=== PATIENT | female | born 1985 | race Caucasian/White ===

== ENCOUNTER 2020-07-14 01:36 | Emergency (ER) | payer OTHER, SELFPAY ==
--- NOTE | ~2020-07-14 | CT_ITS ---
EXAMINATION CT CHEST, ABDOMEN AND PELVIS WITH CONTRAST CLINICAL INFORMATION: Trauma. COMPARISON: None. TECHNIQUE: Multidetector volumetric CT imaging of the chest, abdomen and pelvis was obtained after the administration of 85 mL of intravenous Omnipaque 350 without immediate adverse reactions. Coronal and sagittal reformats were reviewed. This CT examination was performed using dose optimization techniques as appropriate, variously including the following: *Automated exposure control *Adjustment of mA and/or kV according to patient size (this includes techniques or standardized protocols for targeted exams where dose is matched to indication/reason for exam; i.e. extremities or head) *Use of iterative reconstruction technique DLP: 311 mGy-cm. FINDINGS: CHEST LUNGS/PLEURA: Mild anterior subpleural groundglass opacity along the anterior segments of the upper lobes bilaterally suggestive of pulmonary contusions in the setting of trauma. No pneumothorax. Left lower lobe subsegmental atelectasis and trace pleural effusion. MEDIASTINUM/TADEO: Heart normal in size without pericardial effusion. Great vessels normal caliber. No evidence of acute traumatic aortic injury. Central airways patent. CHEST WALL/AXILLA: Unremarkable. ABDOMEN/PELVIS HEPATOBILIARY: Liver normal in size, contour and morphology. Periportal edema present. No suspicious lesions. No intra or extrahepatic biliary dilation. Gallbladder unremarkable. PANCREAS: Unremarkable. SPLEEN: The spleen is shattered with greater than 25% devascularization with lacerations extending through the entirety of the spleen. There is a large amount of blood which is largely subcapsular in location, distending the capsule to 20 cm craniocaudally. ADRENAL GLANDS: Unremarkable. KIDNEYS, URETERS AND BLADDER: Kidneys normal in size, axis and morphology demonstrating symmetric enhancement. No hydronephrosis or urinary calculi. Ureters normal in course and caliber. Bladder grossly unremarkable.. GASTROINTESTINAL TRACT: No bowel related abnormalities. PELVIC VISCERA: Uterus and adnexa unremarkable. LYMPH NODES: Normal. PERITONEUM/BODY WALL: Moderate hemoperitoneum present within the pelvis. VASCULAR STRUCTURES: Normal caliber aorta. Patent venous structures. OSSEOUS STRUCTURES Nondisplaced left lateral eighth rib fracture as seen on sagittal image 2. No additional acute fractures are seen. CT/CT abdomen pelvis w con IMPRESSION: * Shattered spleen (AAST grade 5 splenic injury) with large predominantly subcapsular hematoma and moderate hemoperitoneum, along with greater than 25% devascularization of the spleen. * Nondisplaced left lateral eighth rib fracture. * Minimal subpleural groundglass opacity within the anterior segments of the upper lobes bilaterally likely reflecting pulmonary contusions in the setting of trauma. This critical result was discussed with Tanesha Blanco MD at 07/14/2020 4:01 AM and it was ascertained that the content and urgency of the report was understood at the time of direct communication.
[2020-07-14 01:42] VITALS: BP 134/59; PULSE 132; RESP 16; TEMP 38.4; O2SAT 98; BMI 17.6
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
[2020-07-14 01:52] VITALS: BP 136/72; PULSE 123; RESP 16; TEMP 38.4; O2SAT 98
[2020-07-14] MEDS: Acetaminophen 325 MG TABLET 975 MG PO (02:34)
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
[2020-07-14 02:48] LABS: Glucose Urine UA NEG (NEG); Leukocyte Esterase Urine NEG (NEG); Nitrite Urine NEG (NEG); Specific Gravity - Urine <= 1.005 (1.005-1.025); Urine Blood 3+ (NEG); Urine Ketones NEG (NEG); Urine Protein NEG (NEG-TRACE)
[2020-07-14 02:53] LABS: UPreg QC Valid YES; Urine Pregnancy NEGATIVE (NEGATIVE)
[2020-07-14 02:54] LABS: Appearance Urine CLEAR; Color Urine YELLOW
[2020-07-14 03:03] LABS: Hemoglobin 7.7 g/dl (12.0-16.0); Imm Gran Abs Auto 0.02 X10*3/uL (0.00-0.03); Imm Gran Pct Auto 0.9 % (0.0-0.4); Lymphocytes Absolute Auto 0.2 X10*3/uL (1.2-4.9); MANUAL DIFF FLAG SCAN; Mean Corpuscular HGB Conc 33.5 g/dl (31.0-35.0); Mean Corpuscular Volume 92.7 fL (80-98); Mean Platelet Volume 9.2 fL (9.4-12.3); Monocytes Percent Auto 0.9 % (2-11); Neutrophils Absolute Auto 1.9 X10*3/uL (2.0-8.3); Neutrophils Percent Auto 87.2 % (45-73); Platelet Count 187 X10*3/uL (160-400); Red Blood Count 2.48 X10*6/uL (4.20-5.50); Red Cell Distribution Width 13.4 % (11.0-16.0); SCAN SMEAR FLAG 1
[2020-07-14 03:05] VITALS: BP 114/66; PULSE 125; RESP 22; TEMP 39.5; O2SAT 94
[2020-07-14 03:13] LABS: INTERNATIONAL NORM RATIO 1.3 (0.9-1.1); Prothrombin Time 14.9 SEC (10.8-13.0)
[2020-07-14 03:15] LABS: Mucus Urine TRACE /LPF; RBC Urine 30-49 /HPF (0); Squamous Epithelial Cell Urine TRACE /LPF; WBC Urine 0 /HPF (0-4)
[2020-07-14 03:16] LABS: White Blood Count 2.2 X10*3/uL (4.8-10.8)
[2020-07-14 03:19] LABS: COVID-19 Test Negative (Negative)
[2020-07-14] MEDS: iohexoL 350 MG/ML 100 ML INFUS..BTL 85 ML IV (03:27)
[2020-07-14 03:31] LABS: Lactic Acid 1.5 mmol/L (0.5-2.0)
[2020-07-14 03:32] LABS: Ethanol < 10 mg/dL
[2020-07-14 03:36] LABS: Alanine Aminotransferase 35 U/L (0-31); Albumin Level 3.2 g/dL (3.5-5.0); Alkaline Phosphatase 68 U/L (39-117); Anion Gap 14 (12-20); Aspartate Amino Transferase 51 U/L (5-31); Bilirubin Total 1.5 mg/dL (0.0-1.0); Blood Urea Nitrogen 12 mg/dL (9-16); Calcium 7.6 mg/dL (8.4-10.2); Carbon Dioxide 24 mmol/L (22-29); Chloride 100 mmol/L (96-108); Creatinine Clr Calc Pharmacy 80.7; Estimated Glomerular Filt Rate > 60; Glucose Random 77 mg/dL (60-115); Potassium 3.6 mmol/L (3.3-5.1); Sodium 134 mmol/L (135-145); Total Protein 5.6 g/dL (6.5-8.0)
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
[2020-07-14 03:43] LABS: SLIDE REVIEW VERIFIED
[2020-07-14 03:49] LABS: Amphetamine Screen Urine Not Detected (Not Detect); Barbiturates, Urine Not Detected (Not Detect); Benzodiazepines Screen Urine Not Detected (Not Detect); Cannabinoid Screen Urine Not Detected (Not Detect); Cocaine Screen Urine POSITIVE (Not Detect); Opiate Screen Urine POSITIVE (Not Detect); Phencyclidine Screen Urine Not Detected (Not Detect)
[2020-07-14 03:58] VITALS: BP 121/66; PULSE 125; RESP 20; TEMP 38.4
[2020-07-14] MEDS: cefEPime HCl 2 GM in 0.9 % Sodium Chloride 50 ML IV (03:59)
[2020-07-14] MEDS: 0.9 % Sodium Chloride 1,360.77 ML 1360.77 ML IVCONT (04:02)
--- NOTE | 2020-07-14 04:45 | PC.NURSE ---
NURSE TO NURSE REPORT GIVEN TO YSABEL KELLY AT [facility] EM[facility]GENCY ROOM.
== END 2020-07-14 04:30 | disposition short-term general hospital (02) ==
PROVIDERS: Emergency Provider Student in an Organized Health Care Education/Training Program; PCP Pediatrics
DX: R50.9 Fever, unspecified (principal); S36.09XA Other injury of spleen, initial encounter; S22.32XA Fracture of one rib, left side, initial encounter for closed fracture; S27.321A Contusion of lung, unilateral, initial encounter; S00.11XA Contusion of right eyelid and periocular area, initial encounter; S00.83XA Contusion of other part of head, initial encounter; S40.022A Contusion of left upper arm, initial encounter; S40.021A Contusion of right upper arm, initial encounter; S70.12XA Contusion of left thigh, initial encounter; S70.11XA Contusion of right thigh, initial encounter; Y04.2XXA Assault by strike against or bumped into by another person, initial encounter; Z20.822 Contact with and (suspected) exposure to COVID-19; R10.12 Left upper quadrant pain; F11.90 Opioid use, unspecified, uncomplicated; F14.90 Cocaine use, unspecified, uncomplicated; F17.200 Nicotine dependence, unspecified, uncomplicated; Y93.9 Activity, unspecified; Y92.9 Unspecified place or not applicable; Y99.9 Unspecified external cause status
CPT/HCPCS: 36415; 71260; 74177; 80053; 80307; 80320; 81001; 81025; 83605; 85025; 85610; 86850; 86900; 87040; 87635; 96361; 96374; 99285; J0692; Q9967

== ENCOUNTER 2021-08-10 10:54 | Emergency (ER) | payer OTHER, SELFPAY ==
[2021-08-10 11:34] VITALS: BP 149/86; PULSE 102; RESP 16; TEMP 37.1; O2SAT 96; BMI 17.5
--- NOTE | 2021-08-10 12:35 | ED_ITS ---
HPI - Female Genitourinary General Chief complaint: Urogenital-Female <Denise SeguraPAKO - Last Filed: 08/10/21 19:52> Stated complaint: STD <Denise SeguraPAKO - Last Filed: 08/10/21 19:52> Time Seen by Provider: 08/10/21 12:23 <Denise SeguraPAKO - Last Filed: 08/10/21 19:52> Source: patient <Denise SeguraPAKO - Last Filed: 08/10/21 19:52> Mode of arrival: ambulatory <Denise SeguraPAKO - Last Filed: 08/10/21 19:52> Limitations: no limitations <Denise SeguraPAKO - Last Filed: 08/10/21 19:52> History of Present Illness HPI Narrative: Patient presents to emergency department with concerns about sexually transmitted infection. She states that she was recently tested at a detox center, had blood work done, and was advised that she had a bacterial infection, is unable to provide any further details, states she was not provided with any antibiotics. She reports a recent encounter of unprotected sex and was advised that the person was positive for chlamydia, gonorrhea, and syphilis. She is re porting lower abdominal/suprapubic pain/cramping, amenorrhea for 10 months. Reports, vaginal discharge but is unable to provide specific details. Denies dysuria urinary frequency. She has a history of polysubstance abuse, states that she last injected approximately 1 hour prior to arrival, she is intermittently drowsy and fidgety, but able to participate in obtaining history. <Denise AlvarezPAKO cornejo - Last Filed: 08/10/21 19:52> Related Data Home medications: Previous Rx's Medication Instructions Recorded doxycycline hyclate 100 mg tablet 100 mg PO BID 7 Days #14 tab 08/10/21 metronidazole 500 mg tablet 500 mg PO BID 7 Days #14 tab 08/10/21 naloxone 4 mg/actuation nasal 4 mg INTRANASAL Q3M PRN #2 ea 08/10/21 spray (Narcan) <Denise Eagle PAKO Segura - Last Filed: 08/10/21 19:52> Allergies/Adverse reactions: Allergies Allergy/AdvReac Type Severity Reaction Status Date / Time No Known Allergies Allergy Verified 07/14/20 02:13 <Denise Seguar CNP - Last Filed: 08/10/21 19:52> Review of Systems Review of Systems: Constitutional: No weight loss, fever, chills, weakness or fatigue. ENT/ Mouth: No Ear Pain, No Nasal Congestion, No sore throat, No Rhinorrhea, No Swallowing Difficulty Skin: No rash or itching. Cardiovascular: No chest pain, chest pressure or chest discomfort. No palpitations or pedal edema. Respiratory: No shortness of breath, cough or sputum production. Gastrointestinal: No anorexia, nausea, vomiting or diarrhea. Positive lower abdominal/suprapubic pain. Genitourinary: No burning micturition. No urinary frequency or incontinence. Positive vaginal discharge. Positive pelvic pain. Neurologic: No headache, dizziness, syncope, unilateral weakness, ataxia, numbness or tingling in the extremities. No change in bowel or bladder control. Musculoskeletal: No muscle pain, back pain, joint pain or stiffness. <Denise Segura CNP - Last Filed: 08/10/21 19:52> Yes all other systems are reviewed and are negative <Denise Segura CNP - Last Filed: 08/10/21 19:52> [facility] Past Medical History Attestation statement: The following information was validated with the patient. <Denise Segura CNP - Last Filed: 08/10/21 19:52> Source: old records reviewed <Denise Segura CNP - Last Filed: 08/10/21 19:52> Medical History: Medical History delivery delivered Hepatitis C Pre-diabetes <Denise Segura CNP - Last Filed: 08/10/21 19:52> Surgical History: Surgical History S/P splenectomy <Denise Segura CNP - Last Filed: 08/10/21 19:52> Social History Social History: Social History Alcohol intake: current Alcohol intake frequency: a few times a month Alcohol type: beer Substance Use Type: Crack/Cocaine and Heroin Advance Directives: No Advance Directives Information Provided: No Patient : No <Denise Eagle PAKO Segura - Last Filed: 08/10/21 19:52> Physical Exam Vital Signs: Vital Signs: Last Vital Signs Temp 98.8 F 08/10/21 11:34 Pulse 96 08/10/21 16:29 Resp 15 08/10/21 16:29 BP 105/73 08/10/21 16:29 Pulse Ox 95 08/10/21 16:29 BMI result Body Mass Index 17.5 Vital signs have been reviewed and appeared to be correct. Hypertensive? Heart rate 94 during exam.? Respiration rate normal. Temperature normal.? Oxygen saturation normal. <Denise Eagle PAKO Segura - Last Filed: 08/10/21 19:52> Appearance: Drowsy but arousable.?Oriented to person, place and time. No acute distress.? Eyes: Pupils equal, round and reactive to light.? ENT: Pharynx normal.?? Neck: Normal inspection.? Neck supple.?? CVS: Heart sounds normal. Normal heart rate and rhythm.? Pulses normal.?? Respiratory: No respiratory distress.? Lung sounds clear to auscultation bilaterally?? Abdomen: Soft and non-tender. Genitourinary: Supervised by Della Faust. Normal external appearance of urethra.? No lesions/lacerations or discharge or tenderness noted.? Speculum exam: normal appearance/palpation of vagina normal. No abnormal vaginal discharge noted.? Otherwise no vaginal erythema. No foreign bodies noted. No vaginal laceration/lesions or active bleeding noted.? No vaginal mass noted.? No vaginal swelling noted.? No vaginal tenderness noted.? Normal appearance of cervix. Normal palpation of cervix.? Cervical os is closed.? No abnormal ce rvical discharge noted.? No cervical lesion/mass.? No Bartholin cyst noted.? No cervical motion tenderness noted.? Negative chandelier sign.? Normal bimanual exam.? Uterine size normal.? Bladder normal to palpation. Normal adnexa. Normal rectovaginal exam. Back:? No CVA tenderness.? Full range of motion noted. Skin: Skin warm and dry.? Normal skin color.? Extremities: No lower extremity edema.? Neuro: Moves all extremities spontaneously. Sensation intact bilaterally. No motor deficits. No focal neuro deficits. Ambulates with normal steady gait. <Denise Segura CNP - Last Filed: 08/10/21 19:52> Course Course Course Narrative: Patient is a 35-year-old female with a past medical history of opioid use disorder, and concern for sexually transmitted infection after recent unprotected intercourse, was advised that she had a ?bacterial infection? but wa s not treated for this. She states that she did use IV drugs a few hours prior to her arrival. Will obtain urinalysis, urine , T palladium antibody, chlamydia and gonorrhea testing, trichomoniasis testing, bacterial vaginosis panel. Basic labs including CBC and CMP. Disposition will be pending results. <Denise Segura CNP - Last Filed: 08/10/21 19:52> Reevaluation(s) Reevaluation #1: CBC reveals leukocytosis 16.2, normocytic anemia hemoglobin 11.8 hematocri t 35.9. CMP unremarkable. At this time patient is asleep, difficult to arouse, shallow respirations, not awaking to verbal stimuli, sternal chest rub and patient is minimally arousable but still very lethargic review of difficulty obtaining 2 saturation. Decision made to administer Narcan 4 mg intranasal at this time. <Denise Segura CNP - Last Filed: 08/10/21 19:52> Time: 13:41 <Denise Segura CNP - Last Filed: 08/10/21 19:52> Reevaluation #2: More arousable after Narcan vital signs: BP 134/110, pulse 94, respiratory rate 16, O2 saturation 99% on room air. Respirations are regular even and nonlabored. <Denise Segura CNP - Last Filed: 08/10/21 19:52> Time: 13:51 <Denise Segura CNP - Last Filed: 08/10/21 19:52> Reevaluation #3: Patient very agitated after receiving and, reports feeling sick, nauseous. Requesting to and at this time. Discussed with patient the concerns that initially brought her to the emergency department, advised that she could still received treatment for her concern of exposure to sexually transmitted infections, discussed concern for pelvic inflammatory disease based on her symptoms and recommend that she have an ultrasound obtained however she declines all of these treatments. Offered care team/community living coach speak with patient for SUDE evaluation but she declines. She is alert verbal and speaking in clear full sentences. Ambulatory with a steady gait. <Denise Segura CNP - Last Filed: 08/10/21 19:52> Time: 14:10 <Denise Segura CNP - Last Filed: 08/10/21 19:52> Additional Reevaluation(s): 1430: Patient went into the restroom before leaving. Patient initially responding and actively vomiting. Attempted to knock on the door to check on patient and she was not answering. Security called to the bathroom to facilitate unlocking the door. Patient kneeling on the ground with emesis on the floor. Drug paraphernalia surrounding her. It is unclear whether she used any drugs while in the bathroom. Patient is tremulous, breathing, appearing pale, palpable carotid pulse. Patient assisted to a stretcher and brought back to the room. 1500: Patient resting on the stretcher remains drowsy, is easily arousable to verbal stimuli. Receive Zofran sublingual for vomiting. 1730: Urinalysis without sign of infection. Urine test is negative. Currently denying any lower abdominal or pelvic pain. Performed pelvic exam with circulating process inspector, CHRISTOS Hull. No abnormalities found on exam. No cervical motion tenderness. Low concern for pelvic inflammatory disease. Discussed treatment plan for prophylaxis of sexually transmitted infections. Received ceftriaxone IM and penicillin G IM while in the emergency department. Advised that she will need to pick and shovel man new prescription for doxycycline and Flagyl from the pharmacy both of which are to be taken for 1 week and advised to complete the entire course. Advised that she will be contacted if she receives any positive results. In addition she was provided a new prescription for Narcan. She was offered a SUDE evaluation but she declines. She is alert and oriented x3, speaking in clear full sentences, in no apparent distress. Hemodynamically stable. All questions were answered and patient cleared for discharged home in stable condition. <Denise Segura CNP - Last Filed: 08/10/21 19:52> MDM - Female Genitourinary Lab Data Result diagrams: : 08/10/21 12:59 08/10/21 12:59 <Denise Segura, COMPLIANCE MANAGER - Last Filed: 08/10/21 19:52> Labs: Lab Results 08/10/21 08/10/21 08/10/21 Range/Units 12:59 12:59 12:59 WBC 16.2 H (4.8-10.8) X10*3/uL RBC 3.99 L (4.20-5.50) X10*6/uL Hgb 11.8 L (12.0-16.0) g/dl Hct 35.9 L (37.0-47.0) % MCV 90.0 (80.0-98.0) fL MCH 29.6 (27.0-33.0) pg MCHC 32.9 (31.0-35.0) g/dl RDW 13.9 (11.0-16.0) % Plt Count 528 H (160-400) X10*3/uL MPV 10.8 (9.4-12.3) fL Immature Gran % (Auto) 0.4 (0.0-0.4) % Neut % (Auto) 64.2 (45-73) % Lymph % (Auto) 23.7 (20-40) % Fergus % (Auto) 10.3 (2-11) % Eos % (Auto) 0.7 (0-4) % Baso % (Auto) 0.7 (0-2) % Lymph # (Auto) 3.8 (1.2-4.9) X10*3/uL Fergus # (Auto) 1.7 H (0.1-1.2) X10*3/uL Eos # (Auto) 0.1 (0.0-0.4) X10*3/uL Baso # (Auto) 0.1 (0.0-0.2) X10*3/uL Abs Immat Gran (auto) 0.07 H (0.00-0.03) X10*3/uL Absolute Neuts (auto) 10.4 H (2.0-8.3) x10*3/uL Absolute Nucleated RBC 0.000 (0.0-0.012) X10*3/uL Nucleated RBC % (auto) 0.0 (0.0-0.2) /100WBC Sodium 135 (135-145) mmol/L Potassium 4.3 (3.3-5.1) mmol/L Chloride 102 (96-108) mmol/L Carbon Dioxide 27 (22-29) mmol/L Anion Gap 10 L (12-20) BUN 14 (9-16) mg/dL Creatinine 0.66 (0.5-1.4) mg/dL Estim Creat Clear Calc 85.3 Estimated GFR > 60 Random Glucose 94 (60-115) mg/dL Calcium 9.2 D (8.4-10.2) mg/dL Total Bilirubin 0.4 (0.0-1.0) mg/dL AST 22 D (5-31) U/L ALT 16 (0-31) U/L Alkaline Phosphatase 41 D (39-117) U/L Total Protein 6.9 D (6.5-8.0) g/dL Albumin 3.7 (3.5-5.0) g/dL Urine Color Urine Appearance Urine pH (5.0-8.0) Ur Specific [place] (1.005-1.025) Urine Protein (NEG-TRACE) MG/DL Urine Glucose (UA) (NEG) MG/DL Urine Ketones (NEG) MG/DL Urine Blood (NEG) Urine Nitrite (NEG) Ur Leukocyte Esterase (NEG) Urine RBC (0) /HPF Urine WBC (0-4) /HPF Ur Squamous Epith Cells /LPF Urine Bacteria /LPF Urine Mucus /LPF Urine Test (NEGATIVE) T.pallidum Ab (EIA) Nonreactive (Nonreactive) Divina species DNA (Negative) Chlam trachomat DNA PCR (Not Detect.) Gardnerella DNA Probe (Negative) N.gonorrhoeae DNA (PCR) (Not Detect.) Trichomonas DNA Probe (Negative) 08/10/21 08/10/21 08/10/21 Range/Units 17:52 17:52 19:28 WBC (4.8-10.8) X10*3/uL RBC (4.20-5.50) X10*6/uL Hgb (12.0-16.0) g/dl Hct (37.0-47.0) % MCV (80.0-98.0) fL MCH (27.0-33.0) pg MCHC (31.0-35.0) g/dl RDW (11.0-16.0) % Plt Count (160-400) X10*3/uL MPV (9.4-12.3) fL Immature Gran % (Auto) (0.0-0.4) % Neut % (Auto) (45-73) % Lymph % (Auto) (20-40) % Fergus % (Auto) (2-11) % Eos % (Auto) (0-4) % Baso % (Auto) (0-2) % Lymph # (Auto) (1.2-4.9) X10*3/uL Fergus # (Auto) (0.1-1.2) X10*3/uL Eos # (Auto) (0.0-0.4) X10*3/uL Baso # (Auto) (0.0-0.2) X10*3/uL Abs Immat Gran (auto) (0.00-0.03) X10*3/uL Absolute Neuts (auto) (2.0-8.3) x10*3/uL Absolute Nucleated RBC (0.0-0.012) X10*3/uL Nucleated RBC % (auto) (0.0-0.2) /100WBC Sodium (135-145) mmol/L Potassium (3.3-5.1) mmol/L Chloride (96-108) mmol/L Carbon Dioxide (22-29) mmol/L Anion Gap (12-20) BUN (9-16) mg/dL Creatinine (0.5-1.4) mg/dL Estim Creat Clear Calc Estimated GFR Random Glucose (60-115) mg/dL Calcium (8.4-10.2) mg/dL Total Bilirubin (0.0-1.0) mg/dL AST (5-31) U/L ALT (0-31) U/L Alkaline Phosphatase (39-117) U/L Total Protein (6.5-8.0) g/dL Albumin (3.5-5.0) g/dL Urine Color YELLOW Urine Appearance CLEAR Urine pH 6.5 (5.0-8.0) Ur Specific [place] >= 1.030 H (1.005-1.025) Urine Protein NEG (NEG-TRACE) MG/DL Urine Glucose (UA) NEG (NEG) MG/DL Urine Ketones NEG (NEG) MG/DL Urine Blood TRACE (NEG) Urine Nitrite NEG (NEG) Ur Leukocyte Esterase NEG (NEG) Urine RBC 1-4 (0) /HPF Urine WBC 0-2 (0-4) /HPF Ur Squamous Epith Cells TRACE /LPF Urine Bacteria TRACE /LPF Urine Mucus TRACE /LPF Urine Test NEGATIVE (NEGATIVE) T.pallidum Ab (EIA) (Nonreactive) Divina species DNA Negative (Negative) Chlam trachomat DNA PCR (Not Detect.) Gardnerella DNA Probe Positive A (Negative) N.gonorrhoeae DNA (PCR) (Not Detect.) Trichomonas DNA Probe Negative (Negative) 08/10/21 Range/Units 19:29 WBC (4.8-10.8) X10*3/uL RBC (4.20-5.50) X10*6/uL Hgb (12.0-16.0) g/dl Hct (37.0-47.0) % MCV (80.0-98.0) fL MCH (27.0-33.0) pg MCHC (31.0-35.0) g/dl RDW (11.0-16.0) % Plt Count (160-400) X10*3/uL MPV (9.4-12.3) fL Immature Gran % (Auto) (0.0-0.4) % Neut % (Auto) (45-73) % Lymph % (Auto) (20-40) % Fergus % (Auto) (2-11) % Eos % (Auto) (0-4) % Baso % (Auto) (0-2) % Lymph # (Auto) (1.2-4.9) X10*3/uL [place] # (Auto) (0.1-1.2) X10*3/uL Eos # (Auto) (0.0-0.4) X10*3/uL Baso # (Auto) (0.0-0.2) X10*3/uL Abs Immat Gran (auto) (0.00-0.03) X10*3/uL Absolute Neuts (auto) (2.0-8.3) x10*3/uL Absolute Nucleated RBC (0.0-0.012) X10*3/uL Nucleated RBC % (auto) (0.0-0.2) /100WBC Sodium (135-145) mmol/L Potassium (3.3-5.1) mmol/L Chloride (96-108) mmol/L Carbon Dioxide (22-29) mmol/L Anion Gap (12-20) BUN (9-16) mg/dL Creatinine (0.5-1.4) mg/dL Estim Creat Clear Calc Estimated GFR Random Glucose (60-115) mg/dL Calcium (8.4-10.2) mg/dL Total Bilirubin (0.0-1.0) mg/dL AST (5-31) U/L ALT (0-31) U/L Alkaline Phosphatase (39-117) U/L Total Protein (6.5-8.0) g/dL Albumin (3.5-5.0) g/dL Urine Color Urine Appearance Urine pH (5.0-8.0) Ur Specific [place] (1.005-1.025) Urine Protein (NEG-TRACE) MG/DL Urine Glucose (UA) (NEG) MG/DL Urine Ketones (NEG) MG/DL Urine Blood (NEG) Urine Nitrite (NEG) Ur Leukocyte Esterase (NEG) Urine RBC (0) /HPF Urine WBC (0-4) /HPF Ur Squamous Epith Cells /LPF Urine Bacteria /LPF Urine Mucus /LPF Urine Test (NEGATIVE) T.pallidum Ab (EIA) (Nonreactive) Divina species DNA (Negative) Chlam trachomat DNA PCR DETECTED A (Not Detect.) Gardnerella DNA Probe (Negative) N.gonorrhoeae DNA (PCR) DETECTED A (Not Detect.) Trichomonas DNA Probe (Negative) <Denise Segura CNP - Last Filed: 08/10/21 19:52> Discharge Plan Discharge Clinical Impression: Opioid use disorder, Contact with and (suspected) exposure to infections with a predominantly sexual mode of transmission <Denise Segura CNP - Last Filed: 08/10/21 19:52> Patient Disposition: Home, Self-Care <Denise Segura CNP - Last Filed: 08/10/21 19:52> Instructions: Naloxone (Into the nose), Sexually Transmitted Diseases (ED), Safe Sex Practices (ED), Opioid Use Disorder (ED) <Denise Segura CNP - Last Filed: 08/10/21 19:52> Additional Instructions: You presented to the emergency department for evaluation of possible sexually transmitted infections. Testing was sent for chlamydia and gonorrhea, results will be obtained in 24-48 hours you will receive a call if they are positive. You received an injection of ceftriaxone while in the emergency department, you additionally need to take doxycycline twice a day for 1 week for the treatment of these infections. You additionally expressed concerns about exposure to syphilis, testing was obtained and results are pending. You received an injection with penicillin G for post exposure treatment. You additionally were reporting pelvic pain and abnormal vaginal discharge, testing for bacterial vaginosis, yeast infection, trichomoniasis was also obtained. You have been given a new prescription for Flagyl, please take the entire course of this medication. You were offered to speak with one of our community living coach is regarding your opioid use disorder but declined. You have been given a new prescription for Narcan that was sent to your pharmacy, please keep this on your person and give this to someone that you are close to in the event that you should overdose it can be sprayed into your nostril. Should you need to use Narcan you should come to the emergency department to be evaluated afterwards. <Denise Segura CNP - Last Filed: 08/10/21 19:52> Prescriptions: New naloxone [Narcan] 4 mg/actuation spray,non-aerosol 4 mg intranasal Q3M PRN (Reason: opioid overdose) Qty: 2 0RF Rx Instructions: spray 1 dose into ONE nostril; alternate nostrils w each dose until help arr alison doxycycline hyclate 100 mg tablet 100 mg PO BID 7 Days Qty: 14 0RF metronidazole 500 mg tablet 500 mg PO BID 7 Days Qty: 14 0RF <Denise Segura CNP - Last Filed: 08/10/21 19:52> Interventions: ED Discharge Assessment Last Done: 08/10/21 20:32 <Denise Segura CNP - Last Filed: 08/10/21 19:52> Discharge Date/Time: 08/10/21 20:20 <Denise Segura CNP - Last Filed: 08/10/21 19:52>
[2021-08-10 13:02] LABS: MANUAL DIFF FLAG NO
[2021-08-10 13:17] LABS: Basophils Absolute Auto 0.1 X10*3/uL (0.0-0.2); Basophils Percent Auto 0.7 % (0-2); Eosinophils Absolute Auto 0.1 X10*3/uL (0.0-0.4); Eosinophils Percent Auto 0.7 % (0-4); Hematocrit 35.9 % (37.0-47.0); Hemoglobin 11.8 g/dl (12.0-16.0); Imm Gran Abs Auto 0.07 X10*3/uL (0.00-0.03); Imm Gran Pct Auto 0.4 % (0.0-0.4); Lymphocytes Absolute Auto 3.8 X10*3/uL (1.2-4.9); Lymphocytes Percent Auto 23.7 % (20-40); Mean Corpuscular HGB Conc 32.9 g/dl (31.0-35.0); Mean Corpuscular Hemoglobin 29.6 pg (27.0-33.0); Mean Platelet Volume 10.8 fL (9.4-12.3); Monocytes Absolute Auto 1.7 X10*3/uL (0.1-1.2); Monocytes Percent Auto 10.3 % (2-11); Neutrophils Absolute Auto 10.4 x10*3/uL (2.0-8.3); Neutrophils Percent Auto 64.2 % (45-73); Platelet Count 528 X10*3/uL (160-400); Red Blood Count 3.99 X10*6/uL (4.20-5.50); Red Cell Distribution Width 13.9 % (11.0-16.0); SCAN SMEAR FLAG 1; White Blood Count 16.2 X10*3/uL (4.8-10.8)
[2021-08-10 13:27] LABS: Alanine Aminotransferase 16 U/L (0-31); Albumin Level 3.7 g/dL (3.5-5.0); Alkaline Phosphatase 41 U/L (39-117); Anion Gap 10 (12-20); Aspartate Amino Transferase 22 U/L (5-31); Bilirubin Total 0.4 mg/dL (0.0-1.0); Blood Urea Nitrogen 14 mg/dL (9-16); Calcium 9.2 mg/dL (8.4-10.2); Carbon Dioxide 27 mmol/L (22-29); Chloride 102 mmol/L (96-108); Creatinine Clr Calc Pharmacy 85.3; Estimated Glomerular Filt Rate > 60; Glucose Random 94 mg/dL (60-115); Potassium 4.3 mmol/L (3.3-5.1); Sodium 135 mmol/L (135-145); Total Protein 6.9 g/dL (6.5-8.0)
[2021-08-10] MEDS: Naloxone HCl Nasal 4 MG SPRAY NOSTRILALT (13:44)
--- NOTE | 2021-08-10 14:09 | PC.NURSE ---
pt difficult to rouse for care, able to draw some labs for pt. ultrasound was unable to initially perform exam as pt was too lethargic. Provider ordered Narcan to be administered. Author returned to room with provider to find pt extremely agitated pacing about room stated did you narcan me? to which we informed the pt that she was due to her altered conditions. pt stated well now I cant do anything now, i'm getting wicked sick . Pt declined antibiotics, and stated she was leaving.
[2021-08-10 14:40] VITALS: BP 134/90; PULSE 84; RESP 16; O2SAT 98
[2021-08-10] MEDS: Ondansetron ODT 4 MG TAB.RAPDIS TRANSLINGU (14:47)
[2021-08-10 15:34] VITALS: BP 125/94; PULSE 97; RESP 15; O2SAT 97
--- NOTE | 2021-08-10 15:52 | PC.NURSE ---
pt ambulated to bathroom at 1400 and began to vomit, vomitting episode lasted approximately ten minutes, offered nausea medication to patient with no respone from inside th bathroom. security notified, bathroom door opened by security, pt observed on the floor, in position, vomitting with needles and paraphernalia in front of her. able to get pt into gurney with assist of 2. pt placed on tele , zofran 4mg SL given. pt now sleeping. Pelvic US cancelled by shahzad Pino.
[2021-08-10 16:29] VITALS: BP 105/73; PULSE 96; RESP 15; O2SAT 95
[2021-08-10 18:19] LABS: Appearance Urine CLEAR; Color Urine YELLOW; Glucose Urine UA NEG (NEG); Leukocyte Esterase Urine NEG (NEG); Nitrite Urine NEG (NEG); PH 6.5 (5.0-8.0); Specific Gravity - Urine >= 1.030 (1.005-1.025); UACC Culture Trigger NO; Urine Blood TRACE (NEG); Urine Ketones NEG (NEG); Urine Protein NEG (NEG-TRACE)
[2021-08-10 18:25] LABS: Bacteria Urine TRACE /LPF; Mucus Urine TRACE /LPF; Squamous Epithelial Cell Urine TRACE /LPF; WBC Urine 0-2 /HPF (0-4)
[2021-08-10 18:34] LABS: UPreg QC Valid YES; Urine Pregnancy NEGATIVE (NEGATIVE)
[2021-08-11 09:05] LABS: CT PCR DETECTED (Not Detect.); NG PCR DETECTED (Not Detect.)
[2021-08-11 12:12] LABS: BV Int Neg Control Negative (Negative); BV Int Pos Control Positive (Positive)
[2021-08-12 06:05] LABS: Syphilis Screen Nonreactive (Nonreactive)
== END 2021-08-10 20:20 | disposition home or self-care (01) ==
PROVIDERS: Nurse Practitioner Family; Emergency Provider Emergency Medicine Emergency Medical Services; PCP Pediatrics
DX: A54.9 Gonococcal infection, unspecified (principal); F11.90 Opioid use, unspecified, uncomplicated
CPT/HCPCS: 36415; 80053; 81001; 81025; 85025; 86780; 87480; 87491; 87510; 87591; 87660; 96360; 96372; 99284

== ENCOUNTER 2022-05-07 20:00 | Emergency (ER) | payer OTHER, SELFPAY ==
[2022-05-07 20:04] VITALS: BP 118/78; PULSE 87; O2SAT 98
[2022-05-07 20:17] VITALS: BP 102/55; PULSE 78; RESP 16; TEMP 36.3; O2SAT 98
--- NOTE | 2022-05-07 20:18 | MHC.EDTECH ---
pt was assisted for ambulation to bathroom ,pt void large amount of urine ,and pt was pattern changer into hospital attire ,back to bed vitals sign taken .
--- NOTE | 2022-05-07 20:25 | ED_ITS ---
HPI - General Adult General Chief complaint: ETOH/Substance Use Stated complaint: etoh Time Seen by Provider: 05/07/22 20:21 Source: other (No history available at this time) Limitations: altered mental status History of Present Illness HPI narrative: Patient brought in by EMS. With report of alcohol intoxication. Circumstances at this time are unknown. Patient herself is somnolent and unable to give a history Related Data Previous Rx's Medication Instructions Recorded doxycycline hyclate 100 mg tablet 100 mg PO BID 7 days #14 tabs 08/10/21 metronidazole 500 mg tablet 500 mg PO BID 7 days #14 tabs 08/10/21 naloxone 4 mg/actuation nasal 4 mg intranasal Q3M PRN opioid 08/10/21 spray (Narcan) overdose #2 ea Allergies Allergy/AdvReac Type Severity Reaction Status Date / Time No Known Allergies Allergy Verified 07/14/20 02:13 Review of Systems Review of Systems: No review of systems available [facility] Past Medical History Medical History delivery delivered Hepatitis C Pre-diabetes Surgical History S/P splenectomy Social History Social History Alcohol intake: current Alcohol intake frequency: a few times a month Alcohol type: beer Substance Use Type: Crack/Cocaine and Heroin Advance Directives: No Advance Directives Information Provided: No Physical Exam ED Vital Signs: Vital Signs - 24 hr 05/07/22 20:17 05/07/22 20:43 05/07/22 21:35 Temperature 97.4 F 97.8 F Pulse Rate 78 94 Respiratory Rate 16 15 Blood Pressure 102/55 L 124/70 Pulse Oximetry 98 95 97 Oxygen Delivery Method Room Air Room Air Room Air BMI result Body Mass Index 21.6 Const Other: Patient sleeping on the stretcher. She wakes up to shaking but is not verbal. HENMT Other: Normocephalic atraumatic Resp Other: No respiratory distress. Cardio Other: Regular rate and rhythm without murmurs rubs or gallops GI Other: No abdominal distension or apparent discomfort Skin Other: Warm pink and dry. Multiple areas of ?picking . Track johnson. No obvious areas of erythema or infection Medical Decision Making Medical Decision Making MDM Narrative: Patient with mental status change likely secondary to polysubstance use disorder and acute intoxication. Will observe until patient is more awake. Will hold on workup for the time being. Patient is at high risk for multiple other reasons of somnolence. If she is not waking up in a reasonable time frame will expand the workup. 22:35. Re-evaluation shows patient is resting comfortably. She is now arousable. She reports alcohol and opioid intake today. She denies other complaints. At this time not sure about inpatient detox. Anticipate sign-out Discharge Plan Discharge Clinical Impression: Alcoholic intoxication, Polysubstance use disorder Patient Disposition: Home, Self-Care Instructions: Alcohol Intoxication (ED), Polysubstance Abuse (ED) Prescriptions: No Action naloxone [Narcan] 4 mg/actuation spray,non-aerosol 4 mg intranasal Q3M PRN (Reason: opioid overdose) Qty: 2 0RF Rx Instructions: spray 1 dose into ONE nostril; alternate nostrils w each dose until help arrives doxycycline hyclate 100 mg tablet 100 mg PO BID 7 Days Qty: 14 0RF metronidazole 500 mg tablet 500 mg PO BID 7 Days Qty: 14 0RF
[2022-05-07 20:43] VITALS: O2SAT 95; BMI 21.6
[2022-05-07 21:35] VITALS: BP 124/70; PULSE 94; RESP 15; TEMP 36.6; O2SAT 97
--- NOTE | 2022-05-08 00:05 | PC.NURSE ---
Methadone vial secured with pharmacy by primary LETICIA Hoffman.
[2022-05-08 08:24] VITALS: BP 140/81; PULSE 104; RESP 19; O2SAT 98
== END 2022-05-08 08:27 | disposition home or self-care (01) ==
PROVIDERS: Emergency Provider Emergency Medicine Emergency Medical Services; PCP Internal Medicine
DX: F10.129 Alcohol abuse with intoxication, unspecified (principal); Y90.9 Presence of alcohol in blood, level not specified; F11.10 Opioid abuse, uncomplicated; Z79.899 Other long term (current) drug therapy
CPT/HCPCS: 99283

== ENCOUNTER 2022-09-25 04:44 | Emergency (ER) | payer OTHER, SELFPAY ==
[2022-09-25 04:46] VITALS: BP 151/103; PULSE 77; RESP 18; TEMP 36.4; O2SAT 97; BMI 17.4
--- NOTE | 2022-09-25 07:16 | PC.NURSE ---
assumed care of this pt at 0700. pt evaluated by provider, appeared to be sleepy/having difficulty keeping eyes open during examination. pt reports hair loss and itching to head and neck. pt currently resting quietly on stretcher in no apparent distress, sleeping. rr even/unlabored. wctm
--- NOTE | 2022-09-25 07:31 | ED_ITS ---
HPI - General Adult General Chief complaint: Skin/Abscess/Foreign Body Stated complaint: rash? hair loss Time Seen by Provider: 09/25/22 06:38 Source: patient Mode of arrival: ambulatory Limitations: no limitations History of Present Illness HPI narrative: 36-year-old femal with pmh of opoid abuse e presents to the ED for itchy rash with possible hair loss. Patient states itchy scalp and hair loss. Patient states no fever, chills, nausea, vomiting, abdominal pain, back pain, urinary/bowel incontinence, or recent overdose. Related Data Previous Rx's Medication Instructions Recorded doxycycline hyclate 100 mg tablet 100 mg PO BID 7 days #14 tabs 08/10/21 metronidazole 500 mg tablet 500 mg PO BID 7 days #14 tabs 08/10/21 naloxone 4 mg/actuation nasal 4 mg intranasal Q3M PRN opioid 08/10/21 spray (Narcan) overdose #2 ea cephalexin 500 mg capsule 500 mg PO QID 7 days #28 caps 09/25/22 doxycycline hyclate 100 mg capsule 100 mg PO BID 7 days #14 caps 09/25/22 mupirocin 2 % topical ointment 1 appl topical TID 7 days #22 grams 09/25/22 Allergies Allergy/AdvReac Type Severity Reaction Status Date / Time No Known Allergies Allergy Verified 09/25/22 04:52 Review of Systems Review of Systems: itchy scalp on skin, hair loss Yes all other systems are reviewed and are negative [facility] Past Medical History Medical History delivery delivered Hepatitis C Pre-diabetes Surgical History S/P splenectomy Social History Social History Alcohol intake: never Smoked in Last 30 Days: No Use of substances other than those prescribed or required for medical reasons: No Substance Use Type: Crack/Cocaine and Heroin Advance Directives: No Advance Directives Information Provided: No Physical Exam ED Vital Signs: Vital Signs - 24 hr 09/25/22 04:46 Temperature 97.5 F Pulse Rate 77 Respiratory Rate 18 Blood Pressure 151/103 H Pulse Oximetry 97 Oxygen Delivery Method Room Air BMI result Body Mass Index 17.4 Const General: cooperative, healthy appearing, comfortable, no acute distress, well developed and awake Orientation/consciousness: oriented to person, oriented to place, oriented to time and patient oriented x3 [facility] Head: Yes normal to inspection, Yes No palpable skull fracture present, Yes normocephalic and Yes atraumatic Head images: 1. follicular rash with some hair loss. no pus draiaige. no mass 2. follicular rash. no pus drainage. no mass 3. Follicular rash. no pus drainage. no mass 4. excoriative rash. no vescilces/shingles Eyes General: appearance normal, both eyes and all related structures Neck Neck: Yes normal visual inspection, Yes full ROM, Yes no lymphadenopathy, Yes no meningeal signs, Yes trachea midline, Yes supple, No anterior neck swelling and No tender Chest Chest palpation & inspection: normal inspection of the chest and normal palpation of entire chest wall Resp Effort & Inspection: normal respiratory effort and able to speak in complete sentences Auscultation: clear to auscultation bilaterally Cardio Jugular venous distension: no JVD Heart sounds: S1 normal heart sound present and S2 normal heart sound present GI Inspection: Yes normal to inspection and No abdominal wall ecchymosis Palpation (GI): Soft to palpation, not firm, nontender, no guarding and not rigid General: No CVA tenderness and Yes no CVA tenderness Back/Spine/Pelvis Back: no CVA tenderness, No CVA tenderness and No back tenderness Skin Other: Excoriation rash on both forearms, but no rash on hands. NO uticaria General skin exam: no rashes or lesions noted and elasticity normal Neuro General: oriented to person, oriented to place, oriented to time, patient oriented x3, gait normal, tone normal, moves all extremities, Normal light touch and pain sensation, no meningeal signs, no focal motor deficits, CN's II-XI intact bilaterally and normal sensation to monofilament Extrem General: Yes normal to inspection and Yes full ROM Psych Appearance: grossly normal, well kempt and not disheveled Medical Decision Making Medical Decision Making MDM Narrative: 36 yold female presents to the ED for itchy skin rash and some hair loss. No fever, chills, nausea, vomitting, or toxic appearing. vital signs are normal. Differiential folliculitis, Mild Mrsa, Alopecia caused by traction alopecia/folliculitis or tinea. NO labs needed. Patient will be discharged with mucpiorin and oral doxy and cephalexin due to pmh of drug use. patient informed follow up with PCP. Differential Diagnosis Differential Diagnoses: The differential diagnosis associated with the presentation includes (Folliculitis, MRsa, Alopecia, cellulitis, sepsis, allergic reaction, dermaitits, ) Admission/Observation Consideration of admission/observation: Escalation of care including admission/observation considered Prescription Management I considered prescription management with: Antibiotic Discharge Plan Discharge Clinical Impression: Folliculitis, Alopecia Patient Disposition: Home, Self-Care Instructions: Alopecia (DC), Folliculitis (ED) Additional Instructions: You will be given cream to put on scalp and oral antibiotics. Please follow-up with primary care provider for further workup of alopecia and folliculitis. Return to the ED for any fever, chills, worsening rash, lip swelling, chest pain, shortness of breath, sensation of throat closing, tongue swelling, or any other concerning symptoms. Prescriptions: New doxycycline hyclate 100 mg capsule 100 mg PO BID 7 Days Qty: 14 0RF cephalexin 500 mg capsule 500 mg PO QID 7 Days Qty: 28 0RF mupirocin 2 % ointment 1 appl topical TID 7 Days Qty: 22 0RF No Action naloxone [Narcan] 4 mg/actuation spray,non-aerosol 4 mg intranasal Q3M PRN (Reason: opioid overdose) Qty: 2 0RF Rx Instructions: spray 1 dose into ONE nostril; alternate nostrils w each dose until help arrives doxycycline hyclate 100 mg tablet 100 mg PO BID 7 Days Qty: 14 0RF metronidazole 500 mg tablet 500 mg PO BID 7 Days Qty: 14 0RF Interventions: ED Discharge Assessment Last Done: 09/25/22 08:10 Discharge Date/Time: 09/25/22 08:11 Print Language: Faroese
== END 2022-09-25 08:11 | disposition home or self-care (01) ==
PROVIDERS: Emergency Provider Student in an Organized Health Care Education/Training Program
DX: L73.9 Follicular disorder, unspecified (principal); L65.9 Nonscarring hair loss, unspecified; E11.9 Type 2 diabetes mellitus without complications; B19.20 Unspecified viral hepatitis C without hepatic coma
CPT/HCPCS: 99283; 99284

== ENCOUNTER 2022-12-15 16:13 | Emergency (ER) | payer OTHER, SELFPAY ==
--- NOTE | 2022-12-15 16:32 | ED.SKABFB ---
HPI - Skin/Abscess/Foreign Bdy General Chief complaint: General Medical Stated complaint: body rash Related Data Previous Rx's Medication Instructions Recorded doxycycline hyclate 100 mg tablet 100 mg PO BID 7 days #14 tabs 08/10/21 metronidazole 500 mg tablet 500 mg PO BID 7 days #14 tabs 08/10/21 naloxone 4 mg/actuation nasal 4 mg intranasal Q3M PRN opioid 08/10/21 spray (Narcan) overdose #2 ea cephalexin 500 mg capsule 500 mg PO QID 7 days #28 caps 09/25/22 doxycycline hyclate 100 mg capsule 100 mg PO BID 7 days #14 caps 09/25/22 mupirocin 2 % topical ointment 1 appl topical TID 7 days #22 grams 09/25/22 Allergies Allergy/AdvReac Type Severity Reaction Status Date / Time No Known Allergies Allergy Verified 09/25/22 04:52 [facility] Past Medical History Medical History delivery delivered Hepatitis C Pre-diabetes Surgical History S/P splenectomy Social History Social History Alcohol intake: never Substance Use Type: Crack/Cocaine and Heroin Advance Directives: No Advance Directives Information Provided: No Physical Exam Vital Signs: Vital Signs: Last Vital Signs Temp 98.3 F 12/15/22 16:33 Pulse 109 H 12/15/22 16:33 Resp 20 12/15/22 16:33 BP 143/89 H 12/15/22 16:33 Pulse Ox 99 12/15/22 16:33 O2 Del Method Room Air 12/15/22 16:33 BMI result Body Mass Index 17.7 Course Course Course Narrative: RME - 37 yo female with history of opioid use disorder on methadone 120 mg per day who is still using presents to the ER for evaluation of ongoing skin issues and hair loss. Seen here in September for similar issues and was prescribed abx for folliculitis. She reported some improvement w/ that. She now has ongoing itchy scalp, tactile hallucinations and various lesions on her skin. Continues to use IV drugs. She wants to transition to suboxone and go to rehab. No evidence of acute cellulitis or active infection on exam. Very fidgety and anxious in triage. Plan: labs, Addiction medicine consult Reevaluation(s) Reevaluation #1: patient eloped prior to completing treatment Medical Decision Making Lab Data 12/15/22 16:59 12/15/22 16:59 Labs: Lab Results 12/15/22 12/15/22 Range/Units 16:59 20:26 WBC 16.8 H (4.8-10.8) X10*3/uL RBC 4.15 L (4.20-5.50) X10*6/uL Hgb 12.2 (12.0-16.0) g/dl Hct 37.0 (37.0-47.0) % MCV 89.2 (80.0-98.0) fL MCH 29.4 (27.0-33.0) pg MCHC 33.0 (31.0-35.0) g/dl RDW 15.0 (11.0-16.0) % Plt Count 422 H (160-400) X10*3/uL MPV 10.5 (9.4-12.3) fL Immature Gran % (Auto) 0.4 (0.0-0.4) % Neut % (Auto) 54.8 (45-73) % Lymph % (Auto) 33.6 (20-40) % Simpson % (Auto) 8.8 (2-11) % Eos % (Auto) 1.9 (0-4) % Baso % (Auto) 0.5 (0-2) % Lymph # (Auto) 5.6 H (1.2-4.9) X10*3/uL Simpson # (Auto) 1.5 H (0.1-1.2) X10*3/uL Eos # (Auto) 0.3 (0.0-0.4) X10*3/uL Baso # (Auto) 0.1 (0.0-0.2) X10*3/uL Abs Immat Gran (auto) 0.06 H (0.00-0.03) X10*3/uL Absolute Neuts (auto) 9.2 H (2.0-8.3) x10*3/uL Absolute Nucleated RBC 0.000 (0.0-0.012) X10*3/uL Nucleated RBC % (auto) 0.0 (0.0-0.2) /100WBC Smear Tech's Comments VERIFIED Sodium 143 (135-145) mmol/L Potassium 3.6 (3.3-5.1) mmol/L Chloride 107 (96-108) mmol/L Carbon Dioxide 28 (22-29) mmol/L Anion Gap 12 (12-20) BUN 14 (9-16) mg/dL Creatinine 0.78 (0.5-1.4) mg/dL Estim Creat Clear Calc 71.1 Estimated GFR > 60 Random Glucose 119 H (60-115) mg/dL Calcium 9.4 (8.4-10.2) mg/dL Magnesium 2.0 (1.6-2.6) mg/dL Total Bilirubin 0.6 (0.0-1.0) mg/dL Direct Bilirubin 0.2 (0.0-0.5) mg/dL AST 58 H (5-31) U/L ALT 53 H (0-31) U/L Alkaline Phosphatase 52 (39-117) U/L Total Protein 7.4 (6.5-8.0) g/dL Albumin 3.7 (3.5-5.0) g/dL Urine Color Yellow Urine Appearance Clear Urine pH 6.0 (5.0-9.0) Ur Specific [place] >= 1.030 H (1.005-1.025) Urine Protein Negative (Neg-Trace) mg/dL Urine Glucose (UA) Negative (Negative) mg/dL Urine Ketones Negative (Negative) mg/dL Urine Blood Trace H (Negative) Urine Nitrite Negative (Negative) Ur Leukocyte Esterase Negative (Negative) Urine RBC 6-10 H (0-2) /HPF Urine WBC 0-5 (0-5) /HPF Ur Squamous Epith Cells 6-10 (0-2) /HPF Calcium Oxalate Crystal Present Urine Bacteria Trace (None Seen) Hyaline Casts 0-2 (0-2) /LPF Urine Test NEGATIVE (NEGATIVE) Urine Opiates Screen POSITIVE H (Not Detect) Urine Fentanyl Screen POSITIVE H (Not Detect) Ur Barbiturates Screen Not Detected (Not Detect) Ur Phencyclidine Scrn Not Detected (Not Detect) Ur Amphetamines Screen Not Detected (Not Detect) U Benzodiazepines Scrn Not Detected (Not Detect) Urine Cocaine Screen POSITIVE H (Not Detect) U Marijuana (THC) Screen Not Detected (Not Detect) Ethyl Alcohol < 10 mg/dL Discharge Plan Discharge Clinical Impression: Polysubstance abuse Patient Disposition: Elopement Prescriptions: No Action naloxone [Narcan] 4 mg/actuation spray,non-aerosol 4 mg intranasal Q3M PRN (Reason: opioid overdose) Qty: 2 0RF Rx Instructions: spray 1 dose into ONE nostril; alternate nostrils w each dose until help arrives doxycycline hyclate 100 mg tablet 100 mg PO BID 7 Days Qty: 14 0RF metronidazole 500 mg tablet 500 mg PO BID 7 Days Qty: 14 0RF doxycycline hyclate 100 mg capsule 100 mg PO BID 7 Days Qty: 14 0RF cephalexin 500 mg capsule 500 mg PO QID 7 Days Qty: 28 0RF mupirocin 2 % ointment 1 appl topical TID 7 Days Qty: 22 0RF Discharge Date/Time: 12/15/22 23:42
[2022-12-15 16:33] VITALS: BP 143/89; PULSE 109; RESP 20; TEMP 36.8; O2SAT 99; BMI 17.7
[2022-12-15 17:14] LABS: Basophils Absolute Auto 0.1 X10*3/uL (0.0-0.2); Basophils Percent Auto 0.5 % (0-2); Eosinophils Absolute Auto 0.3 X10*3/uL (0.0-0.4); Eosinophils Percent Auto 1.9 % (0-4); Hemoglobin 12.2 g/dl (12.0-16.0); Imm Gran Abs Auto 0.06 X10*3/uL (0.00-0.03); Imm Gran Pct Auto 0.4 % (0.0-0.4); Lymphocytes Absolute Auto 5.6 X10*3/uL (1.2-4.9); Lymphocytes Percent Auto 33.6 % (20-40); MANUAL DIFF FLAG SCAN; Mean Corpuscular Hemoglobin 29.4 pg (27.0-33.0); Mean Corpuscular Volume 89.2 fL (80.0-98.0); Mean Platelet Volume 10.5 fL (9.4-12.3); Monocytes Absolute Auto 1.5 X10*3/uL (0.1-1.2); Monocytes Percent Auto 8.8 % (2-11); Neutrophils Absolute Auto 9.2 x10*3/uL (2.0-8.3); Neutrophils Percent Auto 54.8 % (45-73); Platelet Count 422 X10*3/uL (160-400); Red Blood Count 4.15 X10*6/uL (4.20-5.50); SCAN SMEAR FLAG 1; White Blood Count 16.8 X10*3/uL (4.8-10.8)
[2022-12-15 17:26] LABS: Ethanol < 10 mg/dL
[2022-12-15 17:28] LABS: Alanine Aminotransferase 53 U/L (0-31); Albumin Level 3.7 g/dL (3.5-5.0); Alkaline Phosphatase 52 U/L (39-117); Anion Gap 12 (12-20); Aspartate Amino Transferase 58 U/L (5-31); Bilirubin Direct 0.2 mg/dL (0.0-0.5); Bilirubin Total 0.6 mg/dL (0.0-1.0); Blood Urea Nitrogen 14 mg/dL (9-16); Calcium 9.4 mg/dL (8.4-10.2); Carbon Dioxide 28 mmol/L (22-29); Chloride 107 mmol/L (96-108); Creatinine Clr Calc Pharmacy 71.1; Estimated Glomerular Filt Rate > 60; Glucose Random 119 mg/dL (60-115); Potassium 3.6 mmol/L (3.3-5.1); Sodium 143 mmol/L (135-145); Total Protein 7.4 g/dL (6.5-8.0)
[2022-12-15 17:54] LABS: SLIDE REVIEW VERIFIED
[2022-12-15 20:38] LABS: Amphetamine Screen Urine Not Detected (Not Detect); Barbiturates, Urine Not Detected (Not Detect); Benzodiazepines Screen Urine Not Detected (Not Detect); Cannabinoid Screen Urine Not Detected (Not Detect); Cocaine Screen Urine POSITIVE (Not Detect); Fentanyl, urine POSITIVE (Not Detect); Opiate Screen Urine POSITIVE (Not Detect); Phencyclidine Screen Urine Not Detected (Not Detect)
[2022-12-15 20:47] LABS: Appearance Urine Clear; Color Urine Yellow; Glucose Urine UA Negative (Negative); Leukocyte Esterase Urine Negative (Negative); Nitrite Urine Negative (Negative); Specific Gravity - Urine >= 1.030 (1.005-1.025); UMIC TRIGGER UACC YES; UPreg QC Valid YES; Urine Blood Trace (Negative); Urine Ketones Negative (Negative); Urine Pregnancy NEGATIVE (NEGATIVE); Urine Protein Negative (Neg-Trace)
[2022-12-15 21:09] LABS: Bacteria Urine Trace (None Seen); Calcium Oxalate Crystals Urine Present; Hyaline Casts Urine 0-2 /LPF (0-2); WBC Urine 0-5 /HPF (0-5)
== END 2022-12-15 23:42 | disposition left against medical advice (07) ==
PROVIDERS: Physician Assistant; Emergency Provider Emergency Medicine; PCP Pediatrics
DX: L50.0 Allergic urticaria (principal); F14.10 Cocaine abuse, uncomplicated; F11.10 Opioid abuse, uncomplicated; Z79.899 Other long term (current) drug therapy
CPT/HCPCS: 36415; 80048; 80076; 80307; 81001; 81025; 83735; 85025; 99282; 99284

== ENCOUNTER 2023-08-06 13:45 | Emergency (ER) | payer OTHER, SELFPAY ==
[2023-08-06 14:15] VITALS: BP 143/85; PULSE 113; RESP 20; TEMP 36.1; O2SAT 96; BMI 21.1
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
[2023-08-06] MEDS: Lidocaine HCl 1 % MPF 5 ML VIAL INFILTRATI (16:23)
[2023-08-06 16:37] LABS: MANUAL DIFF FLAG NO
[2023-08-06 16:46] LABS: Basophils Absolute Auto 0.1 X10*3/uL (0.0-0.2); Basophils Percent Auto 1.1 % (0-2); Eosinophils Absolute Auto 0.1 X10*3/uL (0.0-0.4); Eosinophils Percent Auto 0.7 % (0-4); Hematocrit 37.3 % (37.0-47.0); Hemoglobin 12.4 g/dl (12.0-16.0); Imm Gran Abs Auto 0.02 X10*3/uL (0.00-0.03); Imm Gran Pct Auto 0.2 % (0.0-0.4); Lymphocytes Absolute Auto 3.8 X10*3/uL (1.2-4.9); Lymphocytes Percent Auto 45.4 % (20-40); Mean Corpuscular HGB Conc 33.2 g/dl (31.0-35.0); Mean Corpuscular Hemoglobin 29.5 pg (27.0-33.0); Mean Corpuscular Volume 88.8 fL (80.0-98.0); Mean Platelet Volume 10.6 fL (9.4-12.3); Monocytes Absolute Auto 0.8 X10*3/uL (0.1-1.2); Monocytes Percent Auto 9.3 % (2-11); Neutrophils Absolute Auto 3.7 x10*3/uL (2.0-8.3); Neutrophils Percent Auto 43.3 % (45-73); Platelet Count 425 X10*3/uL (160-400); Red Cell Distribution Width 15.1 % (11.0-16.0); White Blood Count 8.5 X10*3/uL (4.8-10.8)
[2023-08-06 16:50] LABS: Appearance Urine Clear; Color Urine Dark Yellow; Glucose Urine UA Negative (Negative); Leukocyte Esterase Urine Small (1+) (Negative); Nitrite Urine Negative (Negative); Specific Gravity - Urine >= 1.030 (1.005-1.025); UMIC TRIGGER UA YES; Urine Blood Negative (Negative); Urine Ketones Trace mg/dL (Negative); Urine Protein Trace mg/dL (Neg-Trace)
[2023-08-06 16:51] LABS: Urine Pregnancy NEGATIVE (NEGATIVE)
[2023-08-06 16:52] LABS: UPreg QC Valid YES
[2023-08-06 16:55] LABS: Bacteria Urine Trace (None Seen); Hyaline Casts Urine 0-2 /LPF (0-2); RBC Urine 0-2 /HPF (0-2)
[2023-08-06 16:55] LABS: Alanine Aminotransferase 17 U/L (0-31); Albumin Level 3.6 g/dL (3.5-5.0); Alkaline Phosphatase 43 U/L (39-117); Anion Gap 14 (12-20); Aspartate Amino Transferase 29 U/L (5-31); Bilirubin Total 0.4 mg/dL (0.0-1.0); Blood Urea Nitrogen 11 mg/dL (9-16); Calcium 9.6 mg/dL (8.4-10.2); Carbon Dioxide 25 mmol/L (22-29); Chloride 106 mmol/L (96-108); Creatinine Clr Calc Pharmacy 93.2; Estimated Glomerular Filt Rate > 60; Ethanol 35 mg/dL; Glucose Random 83 mg/dL (60-115); Potassium 4.1 mmol/L (3.3-5.1); Sodium 141 mmol/L (135-145); Total Protein 7.8 g/dL (6.5-8.0)
[2023-08-06 17:01] LABS: Acetaminophen LAB < 3 mcg/mL (<30); Salicylate < 5.0 mg/dL (15-30)
[2023-08-06 17:33] LABS: Amphetamine Screen Urine Not Detected (Not Detect); Barbiturates, Urine Not Detected (Not Detect); Benzodiazepines Screen Urine Not Detected (Not Detect); Buprenorphine Scr Not Detected (Not Detect); Cannabinoid Screen Urine Not Detected (Not Detect); Cocaine Screen Urine POSITIVE (Not Detect); Fentanyl, urine POSITIVE (Not Detect); Methadone Screen, Urine Positive (Not Detect); Opiate Screen Urine POSITIVE (Not Detect); Oxycodone Screen Urine Not Detected (Not Detect); Phencyclidine Screen Urine Not Detected (Not Detect)
[2023-08-06] MEDS: Sulfamethox/Trimeth 800/160 TABLET 1 TAB PO (17:46)
--- NOTE | 2023-08-06 18:18 | PC.NURSE ---
meeting with recovery team, potential for bed tonight. fax sent to detox intake
--- NOTE | 2023-08-06 20:04 | MHC.RECOVSUP ---
? Reason for consult Recovery support o Current location: [facility] [place] o Identified substance use concern: Heroin - Seeking ATS (detox) - Support ? Intervention: o Community resources provided o Harm reduction discussion ? Plan: o Patient awaiting crisis evaluation o Patient to follow up with [facility] after discharge ? Additional information: Met with patient and she stated that she wanted Detox. gymnastics coach was able to find her a bed at [place]. Patient is [facility] for [facility]
[2023-08-06 20:08] VITALS: BP 157/88; PULSE 95; RESP 18; TEMP 36.7; O2SAT 98
== END 2023-08-06 20:09 ==
PROVIDERS: Nurse Practitioner Family; Emergency Provider Emergency Medicine; PCP Pediatrics
DX: H92.02 Otalgia, left ear (principal); F11.10 Opioid abuse, uncomplicated; L03.113 Cellulitis of right upper limb; M76.62 Achilles tendinitis, left leg; F10.129 Alcohol abuse with intoxication, unspecified; Y90.1 Blood alcohol level of 20-39 mg/100 ml; Z79.899 Other long term (current) drug therapy
CPT/HCPCS: 36415; 80053; 80143; 80179; 80307; 81001; 81025; 85025; 99282; 99283